=== PATIENT | male | born 1950 | race African-American/Black ===

== ENCOUNTER 2021-10-13 13:12 | Emergency (ER) | payer BC ==
[~2021-10-13] VITALS: Ht 182.9 cm; Wt 75.0 kg
[2021-10-13 13:22] VITALS: BP 158/89
[2021-10-13] MEDS ORDERED: LIDOCAINE HCL/PF 1% 10 MG/ML 5ML VIAL INFIL ONE (14:45)
[2021-10-13] MEDS ORDERED: BACITRACIN ZINC OINT UDPKT TOP ONE (14:45)
[2021-10-13] MEDS ORDERED: TETANUS, DIPHTHERIA, PERTUSSIS VAC/PF 0.5ML (>10YR OLD) IM ONE (14:45)
[2021-10-13] MEDS ORDERED: ACET-2708 PO ×3 (16:24→16:29)
== END 2021-10-13 16:29 | disposition home or self-care (01) ==
LOC: ER 13:12
DX: S61.210A Laceration without foreign body of right index finger without damage to nail, initial encounter (principal); Y93.G9 Activity, other involving cooking and grilling; Y92.9 Unspecified place or not applicable
CPT/HCPCS: 12001; 90715; 99282; J3490